=== PATIENT | male | born 1960 | race Caucasian/White ===

== ENCOUNTER 2017-03-24 11:19 | Day surgery (SDC) | payer BC ==
[~2017-03-24] VITALS: Ht 185.4 cm; Wt 142.7 kg
[2017-03-24] VITALS (10 sets, daily range): BP systolic 103–137; BP diastolic 52–102
[2017-03-24] MEDS ORDERED: LORazepam 0.5 MG tablet PO PRN (11:35)
[2017-03-24] MEDS ORDERED: diphenhydrAMINE 25mg capsule PO PRN (11:35)
[2017-03-24] MEDS ORDERED: nitroGLYCERIN 0.4mg SUBLingual tab SL PRN (11:35)
[2017-03-24] MEDS ORDERED: normal saline 1000ml 1,000 ML IV SCH (11:35)
[2017-03-24] MEDS ORDERED: ASPI-1265 PO (11:57)
[2017-03-24] MEDS ORDERED: ALB0.5UD IH (11:57)
[2017-03-24] MEDS ORDERED: CHLO25CA10 PO (11:57)
[2017-03-24] MEDS ORDERED: SIMV80TA2 PO (11:57)
[2017-03-24] MEDS ORDERED: VALS1TAB75 PO (11:57)
[2017-03-24] MEDS ORDERED: LEVO75TA7 PO (11:57)
[2017-03-24 12:49] LABS: BASOPHILS % (AUTO) 0.4 % (0-1); EOSINOPHILS # (AUTO) 0.2 X10'3 (0-0.9); EOSINOPHILS % (AUTO) 1.7 % (0-6); HEMATOCRIT 47.6 % (42.0-52.0); HEMOGLOBIN 16.4 g/dl (14.0-17.9); LYMPHOCYTES # (AUTO) 1.5 X10'3 (1.1-4.8); LYMPHOCYTES % (AUTO) 15.3 % (21-51); MEAN CORPUSCULAR HEMOGLOBIN 32.2 PG (27.0-31.0); MEAN CORPUSCULAR HGB CONC 34.4 % (33.0-36.5); MEAN CORPUSCULAR VOLUME 93.8 FL (78-98); MEAN PLATELET VOLUME 8.6 FL (7.4-10.4); MONOCYTES # (AUTO) 0.7 X10'3 (0-0.9); MONOCYTES % (AUTO) 7.4 % (2-12); NEUTROPHILS # (AUTO) 7.1 X10'3 (1.8-7.7); NEUTROPHILS % (AUTO) 75.2 % (42-75); PLATELET COUNT 237 X10'3 (140-440); RED BLOOD COUNT 5.07 X10'6 (4.70-6.10); RED CELL DISTRIBUTION WIDTH 12.1 % (11.5-14.5); WHITE BLOOD COUNT 9.5 X10'3 (4.5-11.0)
[2017-03-24 12:55] LABS: ALBUMIN 4.2 G/DL (3.4-5.0); ANION GAP 11 (8-16); BLOOD UREA NITROGEN 13 MG/DL (7-18); BUN/CREATININE RATIO 10.8 (5.4-32.0); CALCIUM 8.7 MG/DL (8.5-10.1); CHLORIDE 105 MMOL/L (99-107); GLUCOSE 95 MG/DL (70-104); POTASSIUM 3.8 MMOL/L (3.5-5.1); SODIUM 142 MMOL/L (135-145); TOTAL CARBON DIOXIDE 26.4 MMOL/L (24-32); eGFR 62 ML/MIN
[2017-03-24] MEDS ORDERED: pneumococcal 23-VAL P-sac vacc 25 mcg/0.5ml vial IMVAC ONE (13:25)
[2017-03-24] MEDS ORDERED: midazolam 2 mg/2 ml injection ONE ×2 (14:15→14:38)
[2017-03-24] MEDS ORDERED: iohexol 350MG/ML 100ml bottle IV ONE (14:15)
[2017-03-24] MEDS ORDERED: LIDOcaine 1%/PF (10mg/ml) 5ml vial ONE (14:15)
[2017-03-24] MEDS ORDERED: iohexol 350 MG/ML 50ML vial IV ONE (14:15)
[2017-03-24] MEDS ORDERED: fentaNYL/PF 50MCG/1 ML 2ML syringe ONE ×2 (14:15→14:50)
== END 2017-03-24 20:00 | disposition home or self-care (01) ==
LOC: SSTAY O 11:19
PROVIDERS: ATTEND Internal Medicine Cardiovascular Disease
DX: I25.10 Atherosclerotic heart disease of native coronary artery without angina pectoris (principal); I10 Essential (primary) hypertension; E78.5 Hyperlipidemia, unspecified; F41.1 Generalized anxiety disorder; Z96.642 Presence of left artificial hip joint; Z98.890 Other specified postprocedural states; Z79.82 Long term (current) use of aspirin; Z87.891 Personal history of nicotine dependence
CPT/HCPCS: 36415; 71046; 80048; 85025; 85610; 93005; 93458; 99152; 99153; A6257; C1760; C1769; J1644; J2001; J2250; J3010; J7030; Q0163; Q9967; A4620